=== PATIENT | female | born 1990 | race Caucasian/White ===

== ENCOUNTER 2018-04-11 08:07 | Inpatient (IN) ==
[2018-04-11] MEDS ORDERED: CALCIUM CARBONATE 500 MG (TUMS) CHEWABLE TABLET PO PRN ×2 (08:15→15:14)
[2018-04-11] MEDS ORDERED: METHYLERGONOVINE MALEATE 0.2 MG/1 ML VIAL IM PRN (15:14)
[2018-04-11] MEDS ORDERED: Carboprost Inj 250 MCG/ML AMP IM PRN (15:14)
[2018-04-11] MEDS ORDERED: Naloxone Inj 0.01 MG in Normal Saline Flush 1 ML IVP PRN (15:14)
[2018-04-11] MEDS ORDERED: NALOXONE 0.4 MG/1 ML VIAL IVP PRN (15:14)
[2018-04-11] MEDS ORDERED: LIDOCAINE HCL 2 % 10 ML JELLY URO-JECT TOPICAL PRN ×2 (15:14→17:58)
[2018-04-11] MEDS ORDERED: diphenhydrAMINE 50 MG/1 ML VIAL IVP PRN ×2 (15:14→17:58)
[2018-04-11] MEDS ORDERED: LIDOCAINE W/ SODIUM BICARB 0.5 ML SYR SUBD PRN (15:14)
[2018-04-11] MEDS ORDERED: ONDANSETRON 4 MG/2 ML VIAL IVP PRN ×2 (15:14→17:58)
[2018-04-11] MEDS ORDERED: BUTORPHANOL TARTRATE 2 MG/1 ML VIAL IVP PRN (15:14)
[2018-04-11] MEDS ORDERED: ePHEDrine Inj 5 MG in Normal Saline Flush 1 ML IVP PRN (15:14)
[2018-04-11] MEDS ORDERED: fentaNYL Inj 100 MCG/2 ML VIAL IV PRN (15:14)
[2018-04-11] MEDS ORDERED: FAMOTIDINE 20 MG/2 ML VIAL IVP PRN ×2 (15:14)
[2018-04-11] MEDS ORDERED: CITRIC ACID/SODIUM CITRATE 30 ML CUP PO PRN (15:14)
[2018-04-11] MEDS ORDERED: Metoclopramide Inj 10 MG/2 ML VIAL IV PRN (15:14)
[2018-04-11] MEDS ORDERED: TERBUTALINE SULFATE 1 MG/1 ML SDV SUBCUT PRN (15:14)
[2018-04-11] MEDS ORDERED: CefOXitin Inj 2 GM in Sodium Chloride 0.9% 100 ML IV PRN (15:14)
[2018-04-11] MEDS ORDERED: Phenylephrine Inj 50 MCG in Normal Saline Flush 0.5 ML IVP PRN (15:14)
[2018-04-11] MEDS ORDERED: Lidocaine 1% 10 MG/ML - 20 ML VIAL SUBCUT PRN (15:14)
[2018-04-11] MEDS ORDERED: MISOPROSTOL 200 MCG TABLET RECTAL PRN (15:14)
[2018-04-11] MEDS ORDERED: Nalbuphine Inj 20 MG/ML Ampule IVP PRN ×2 (15:14→17:58)
[2018-04-11] MEDS ORDERED: OXYTOCIN 10 UNIT/1 ML IM PRN (15:14)
[2018-04-11] MEDS ORDERED: Oxytocin 20 Units + LR 20 UNIT/1,000 ML BAG IV SCH ×2 (15:15→17:58)
[2018-04-11] MEDS ORDERED: Lactated Ringers-OB Dept 1,000 ML PRIMARY IV SCH (15:15)
[2018-04-11 15:51] LABS: Hematocrit [HCT] 37.1 % (37.0-47.0); Hemoglobin [HGB] 12.6 g/dL (12.0-16.0); MEAN CORPUSCULAR HEMOGLOBIN 26.1 PG (27-31); MEAN CORPUSCULAR VOLUME 76.8 FL (81-99); MEAN PLATELET VOLUME 11.2 FL (7.4-12.2); RED BLOOD COUNT 4.83 10^6/uL (4.20-5.40)
--- NOTE | 2018-04-11 16:17 | DI ---
LIMITED OBSTETRICAL ULTRASOUND FOR WILMER, 04/11/2018 3:28 PM: Clinical History: heart rate deceleration. Previous Exam: None. EDC Based On Early OB Ultrasound: 04/21/2018. Scans are obtained in all four quadrants for an amnionic fluid index measurement. The WILMER is 12.8 cm. The heart rate is 136 beats per minute. The fetus is in vertex presentation and the placenta i s anterior corpus and grade 1. No abnormality of the interface between the uterine wall the placenta is appreciated. Reading: Amnionic fluid index is 12.8 cm.
--- NOTE | 2018-04-11 16:28 | OB.PROGRES ---
Date of Service: 04/11/18 Time of Service: 15:50 Interval History: Qing is a 27 yo at 38 4/7 weeks by early /s who presented to labor and delivery this morning with increasingly painful uterine contractions. Her cervix was initially unchanged from previous checks, but she got in the whirlpool and ambulated and changed from 2 to 3 cm. She then ambulated for another couple of hours and was 5 cm and was admitted. She denied leakage of any fluid or vaginal bleeding upon admission. Baby has been moving around normally. Objective - Cervical Exam Cervical Exam: 6-7/100/+1/soft [place]: every 3-4 minutes, palpating strong Heart Rate: 140s, reactive, early decelerations noted. Moderate variability. Heart Rate Interpretation Category: Category I - Labs CBC and BMP: 04/11/18 15:40 - Vital Signs Last Taken Vital Signs: Vital Signs - Last Taken Temperature 98.3 F 04/11/18 15:14 Pulse Rate 115 H 04/11/18 15:14 Respiratory Rate 23 04/11/18 15:14 Blood Pressure 135/79 04/11/18 15:14 Pulse Ox 99 04/11/18 15:14 Assessment and Plan - Patient Problems (1) Active labor at term Current Visit: Yes Status: Acute - Assessment / Plan Additional Assessment/Plan Details: -GBS negative. -pt wishing for natural labor at this time. -reassuring heart status. -anticipate normal vaginal delivery.
[2018-04-11] MEDS ORDERED: KETOROLAC 15 MG/1 ML VIAL ONE (17:24)
--- NOTE | 2018-04-11 17:52 | OB.DEL.SUM ---
Delivery Note Delivery Summary: Pt is a 27 yo G2 now P2 at 38 4/7 weeks by early u/s who presented this morning in early labor and then progressed on her own to 6-7/100/+1. She underwent amniotomy with the return of clear fluid at 1550. She progressed on her own fairly quickly to c/c/+2. She pushed several times to the delivery of a viable male over an intact perineum in the JOSH presentation with a hand and body cord that came out with his face. His nose and mouth were bulb suctioned. The cord was clamped by myself after 1 minute and then cut by the father of the baby. Baby was placed on mom's chest. Cord blood and cord gases were obtained. Time of delivery was 1710. The placenta delivered spontaneously and intact, with a 3 vessel cord, at 1713. 20 mU of pitocin were infused with good hemostasis. The vagina and perineum were examined and a small, first degree right vaginal/perineal laceration was noted and repaired in the normal fashion with 3-0 vicryl rapide suture after infiltration with 1% plain lidocaine. EBL 200 cc. Apgars were 8 at 1 minute and 9 at 5 minutes. Baby weighed 8# and was 20 inches long. Both mom and baby tolerated delivery well and are in stable condition at this time. - Patient Problems (1) Active labor at term Current Visit: Yes Status: Acute
[2018-04-11] MEDS ORDERED: Ondansetron ODT Tab 4 MG TAB PO PRN (17:58)
[2018-04-11] MEDS ORDERED: HYDROcodone-APAP 5 MG -325 MG TABLET PO PRN (17:58)
[2018-04-11] MEDS ORDERED: LANOLIN HPA 40 GM TUBE TOPICAL PRN (17:58)
[2018-04-11] MEDS ORDERED: diphenhydrAMINE 25 MG CAPSULE PO PRN (17:58)
[2018-04-11] MEDS ORDERED: ACETAMINOPHEN 325 MG TABLET PO PRN (17:58)
[2018-04-11] MEDS ORDERED: BENZOCAINE/MENTHOL SPRAY 56 GM BOTTLE TOPICAL PRN (17:58)
[2018-04-11] MEDS ORDERED: KETOROLAC 15 MG/1 ML VIAL IVP PRN (17:58)
[2018-04-11] MEDS ORDERED: GLYCERIN/WITCH HAZEL 1 BOX TOPICAL PRN (17:58)
[2018-04-11] MEDS ORDERED: DIPH,PERTUSS,TET(ADACEL) VAC/PF 0.5 ML (Tdap) IM ONE (17:58)
[2018-04-11] MEDS: DOCUSATE 100 MG CAPSULE PO SCH (22:00)
[2018-04-12] MEDS: IBUPROFEN 800 MG TABLET PO PRN ×3 (01:29→18:12)
[2018-04-12] MEDS: CALCIUM CARBONATE 500 MG (TUMS) CHEWABLE TABLET PO PRN ×2 (01:38→06:43)
[2018-04-12 05:31] LABS: Hemoglobin [HGB] 10.4 g/dL (12.0-16.0); MEAN CORPUSCULAR HEMOGLOBIN 26.3 PG (27-31); MEAN CORPUSCULAR HGB CONC 33.5 g/dL (33-37); MEAN CORPUSCULAR VOLUME 78.3 FL (81-99); MEAN PLATELET VOLUME 11.4 FL (7.4-12.2); RED BLOOD COUNT 3.96 10^6/uL (4.20-5.40)
[2018-04-12] MEDS: DOCUSATE 100 MG CAPSULE PO SCH (08:45)
[2018-04-12 08:51] VITALS: BP 101/67; RESP 15; TEMP 98; O2SAT 97
[2018-04-12] MEDS ORDERED: Prenatal Multivitamin Tab 1 TAB TAB PO SCH (09:00)
[2018-04-12] MEDS ORDERED: FERROUS GLUCONATE 324 MG TABLET PO SCH (10:15)
--- NOTE | 2018-04-12 10:35 | OB.PROGRES ---
Subjective Post Day: 1 Pain Management: PO [place] Catheter: No Flatus: No Lochia Color: Rubra/Red Scant < 10 ml Diet: Regular [place] Feeding Method: Exculsively Ambulating: Yes Objective - General General Appearance: POSITIVE: No Acute Distress, Cooperative - Cardiovacular Cardiovascular Exam: POSITIVE: RRR, No Murmur, No Clicks, No Gallops Edema: +1 Pedal Edema Extremities: Negative Rachel's - Bilaterally - Respiratory Respiratory Exam: POSITIVE: Clear to Auscultation - Bilaterally, Breathing Non Labored Assesstment / Plan (1) Active labor at term Current Visit: Yes Status: Acute Assessment / Plan: -routine cares -breast feeding going well. -rh positive -rubella immune. -d/c home tonight.
[2018-04-13] MEDS ORDERED: Lidocaine Inj 1% 20 ML ONE (03:12)
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
== END 2018-04-12 18:57 | disposition home or self-care (01) | DRG 775 ==
LOC: OBOP 08:07 → OBIP 15:14
PROVIDERS: ADMIT Family Medicine; ATTEND Family Medicine